=== PATIENT | male | born 1995 | race African-American/Black ===

== ENCOUNTER 2020-03-08 18:25 | Emergency (ER) | payer OTHER, SELFPAY ==
[2020-03-08 18:28] VITALS: BP 162/118; PULSE 97; RESP 18; TEMP 36.8; O2SAT 99
--- NOTE | 2020-03-08 19:28 | ED.GENADULT ---
HPI - General Adult General Chief complaint: Unspecified Stated complaint: swelling to tonsils Time Seen by Provider: 03/08/20 19:27 Source: patient Mode of arrival: ambulatory Limitations: no limitations History of Present Illness HPI narrative: 24-year-old male patient presents to the [facility] with complaints of sore throat and swollen tonsils for the past week that is gotten increasingly worse over the past 2 to 3 days. Patient denies any fevers that he is aware of. Denies any ear pain. Denies any chest pain or shortness of breath. Patient states he knows that he is snoring but does not have any trouble breathing through the day. Patient states that he does have trouble swallowing at times. Related Data Allergies Allergy/AdvReac Type Severity Reaction Status Date / Time No Known Allergies Allergy Verified 03/08/20 18:30 Review of Systems Review of Systems: Narrative: CONSTITUTIONAL: Denies fever, chills, or sweats. EYES: Denies visual changes, redness, or discharge. ENT: Denies rhinorrhea, congestion, positive sore throat, denies otalgia. CARDIOVASCULAR: Denies chest pain, palpitations, or edema. RESPIRATORY: Denies cough or dyspnea. GASTROINTESTINAL: Denies abdominal pain, nausea, vomiting, or diarrhea. GENITOURINARY: Denies dysuria or hematuria. SKIN: Denies rash or itching. MUSCULOSKELETAL: Denies back pain, joint pain, or myalgia. NEUROLOGIC: Denies headache, numbness, or weakness. PSYCHIATRIC: Denies anxiety or depression. PMFSH Social History Social History Gender identity (if verbalized by the patient): Male Comments At the time of my signature I agree with nursing past medical history, surgical, social, and family history. There is no relevant family history pertinent to the presenting complaint. Exam Narrative: Exam Narrative: GENERAL: Well-appearing, well-nourished, and in no acute distress. HEAD: Normocephalic, atraumatic. EYES: PERRLA and EOMI. ENT: Nares clear, no rhinorrhea or epistaxis. Mucous membranes moist. Posterior pharynx with 3+ kissing tonsils and bilateral white exudates. Bilateral TMs are clear with no erythema or foreign bodies in the canal. Patient tolerated secretions well. NECK: Supple. No lymphadenopathy CHEST: Clear to auscultation. No respiratory distress. HEART: Regular rate and rhythm. No murmur heard. Normal peripheral pulses. ABDOMEN: Soft, nontender, nondistended, normal active bowel sounds. EXTREMITIES: Normal range of motion. No edema. SKIN: Warm, dry, no rash. NEURO: No focal deficits. Alert and oriented x3. Course Vital Signs Vital signs: Vital Signs Temperature 36.8 C 03/08/20 18:28 Pulse Rate 97 03/08/20 18:28 Respiratory Rate 18 03/08/20 18:28 Blood Pressure 162/118 H 03/08/20 18:28 Pulse Oximetry 99 03/08/20 18:28 Temperature 36.8 C 03/08/20 18:28 Pulse Rate 97 03/08/20 18:28 Respiratory Rate 18 03/08/20 18:28 Blood Pressure 162/118 H 03/08/20 18:28 Pulse Oximetry 99 03/08/20 18:28 Vital signs reviewed. The patient has been informed that they may have pre-hypertension or Hypertension based on a BP reading in the department. I recommend that the patient call the primary care provider listed on their discharge instructions or a physician of their choice this week to arrange follow up for further evaluation of possible pre-hypertension or Hypertension Medical Decision Making Differential Diagnosis Differential Diagnosis: Differential diagnosis: Viral pharyngitis, pharyngitis, group A strep, infectious mononucleosis, gonococcal pharyngitis, exudative pharyngitis, oral candidiasis. Chronic allergies, postnasal drip, GERD, abscess formation, but glottitis, retropharyngeal abscess formation, or airway obstruction. Cussed with patient that her strep test today is negative however I am concerned that his tonsils are awfully large and the fact that he has some white exudates on
[2020-03-08] MEDS: AMOXICILLIN/CLAVULANATE K 875-125 MG TAB 1 TABLET PO (20:07)
[2020-03-08 20:08] VITALS: BP 141/100; PULSE 90; RESP 16; TEMP 36.4; O2SAT 100
== END 2020-03-08 20:24 | disposition home or self-care (01) ==
PROVIDERS: Emergency Provider Nurse Practitioner Family
DX: J03.90 Acute tonsillitis, unspecified (principal); R03.0 Elevated blood-pressure reading, without diagnosis of hypertension
CPT/HCPCS: 87081; 87880; 96372; 99283; A9270; J1100

== ENCOUNTER 2020-03-20 16:08 | Emergency (ER) | payer OTHER, SELFPAY ==
[2020-03-20 16:13] VITALS: BP 152/90; PULSE 91; RESP 18; TEMP 36.6; O2SAT 100
[2020-03-20] MEDS: KETOROLAC (*BKC) 60 MG/2 ML VIAL IM (17:17)
--- NOTE | 2020-03-20 17:35 | ED.GENADULT ---
HPI - General Adult General Chief complaint: Headache <Erich Marte PA-C - Last Filed: 03/20/20 17:38> Stated complaint: sinus pressure <Erich Marte PA-C - Last Filed: 03/20/20 17:38> Time Seen by Provider: 03/20/20 16:19 <Erich Marte PA-C - Last Filed: 03/20/20 17:38> Source: patient and family <Erich Marte PA-C - Last Filed: 03/20/20 17:38> Mode of arrival: ambulatory <Erich Marte PA-C - Last Filed: 03/20/20 17:38> Limitations: no limitations <Erich Marte PA-C - Last Filed: 03/20/20 17:38> History of Present Illness HPI narrative: Patient is a 24-year-old male who presents to emergency department for evaluation of frontal headache that has been present now for the last 3 days off-and-on is mild to moderate in nature improved with ibuprofen. Patient was treated for recent upper respiratory infection which she notes has improved patient on arrival is in the room in no distress denies injury or trauma patient denies any radiation of the pain at this time. <Erich Marte PA-C - Last Filed: 03/20/20 17:38> Related Data Allergies/adverse reactions: Allergies Allergy/AdvReac Type Severity Reaction Status Date / Time No Known Allergies Allergy Verified 03/20/20 16:16 <Erich Marte PA-C - Last Filed: 03/20/20 17:38> Review of Systems Review of Systems: All systems reviewed & are unremarkable except as noted in HPI and below <Erich Marte PA-C - Last Filed: 03/20/20 17:38> [facility] Social History Social History: Social History Gender identity (if verbalized by the patient): Male <FLORINDA Emmanuel Last Filed: 03/20/20 17:38> Exam Narrative: Exam Narrative: GENERAL: Well-appearing, obese, and in no acute distress. HEAD: Normocephalic, atraumatic. EYES: PERRLA and EOMI. ENT: Nares clear, no rhinorrhea or epistaxis. Mucous membranes moist. Oropharynx without tonsillar hypertrophy exudate or other lesions. Bilateral TMs pearly mcintosh nonbulging NECK: Supple. No adenopathy or masses. CHEST: Clear to auscultation. No respiratory distress. No wheezes rales or rhonchi HEART: Regular rate and rhythm. No murmur heard. EXTREMITIES: Normal range of motion. No edema. SKIN: Warm, dry, no rash. NEURO: No focal deficits. Alert and oriented x3. Cranial nerves II through XII grossly intact. Normal speech and gait PSYCH: Normal mood and affect. <Erich Marte PA-C - Last Filed: 03/20/20 17:38> Course Course Emergency Course: Patient in the room in no distress aware of case findings treatment plan and diagnosis <Erich Marte PA-C - Last Filed: 03/20/20 17:38> Vital Signs Vital signs: Vital Signs Temperature 97.9 F 03/20/20 16:13 Pulse Rate 91 03/20/20 16:13 Respiratory Rate 18 03/20/20 16:13 Blood Pressure 152/90 H 03/20/20 16:13 Pulse Oximetry 100 03/20/20 16:13 Temperature 97.9 F 03/20/20 16:13 Pulse Rate 91 03/20/20 16:13 Respiratory Rate 18 03/20/20 16:13 Blood Pressure 152/90 H 03/20/20 16:13 Pulse Oximetry 100 03/20/20 16:13 <Erich Marte PA-C - Last Filed: 03/20/20 17:38> Vital Signs Temperature 97.9 F 03/20/20 16:13 Pulse Rate 91 03/20/20 16:13 Respiratory Rate 18 03/20/20 16:13 Blood Pressure 152/90 H 03/20/20 16:13 Pulse Oximetry 100 03/20/20 16:13 Temperature 97.9 F 03/20/20 16:13 Pulse Rate 91 03/20/20 16:13 Respiratory Rate 18 03/20/20 16:13 Blood Pressure 152/90 H 03/20/20 16:13 Pulse Oximetry 100 03/20/20 16:13 <Catherine Birmingham MD - Last Filed: 03/20/20 18:26> Medical Decision Making MDM Narrative Medical decision making narrative: Patients headache was not sudden or maximal in onset. There are no focal neurological deficits on exam. Subarachnoid hemorrhage is felt to be unlikey at this time. There is no history of fever, and nec
== END 2020-03-20 17:51 | disposition home or self-care (01) ==
PROVIDERS: Emergency Provider General Practice; PCP Family Medicine
DX: R51 Headache (principal)
CPT/HCPCS: 96372; 99283; J1885

== ENCOUNTER 2020-04-13 17:08 | Emergency (ER) | payer OTHER, SELFPAY ==
[2020-04-13 17:25] VITALS: BP 150/103; PULSE 93; RESP 18; TEMP 37.1; O2SAT 100
--- NOTE | 2020-04-13 18:17 | ED.GENADULT ---
HPI - General Adult General Chief complaint: Unspecified Stated complaint: TONSIL STONES Time Seen by Provider: 04/13/20 18:09 History of Present Illness HPI narrative: Patient presents with his mother for swollen painful tonsils. He has had recurrent cases of tonsillitis. This is his second case this year. He has been told in the past that he has tonsil stones. He describes this as food and bacteria buildup. He rates his pain at 6 out of 10. He is interested in having his tonsils out to stop the cycle. He has not seen an ear nose and throat doctor in the past. His surgery includes circumcision. He vapes, but does not drink alcohol or smoke marijuana. He works for the [employer]. He is otherwise well. Related Data Allergies Allergy/AdvReac Type Severity Reaction Status Date / Time No Known Allergies Allergy Verified 04/13/20 17:29 Review of Systems Review of Systems: Narrative: CONSTITUTIONAL: Denies fever, chills, or sweats. EYES: Denies visual changes, redness, or discharge. ENT: Denies rhinorrhea, congestion, or otalgia. CARDIOVASCULAR: Denies chest pain, palpitations, or edema. RESPIRATORY: Denies cough or dyspnea. GASTROINTESTINAL: Denies abdominal pain, nausea, vomiting, or diarrhea. GENITOURINARY: Denies dysuria or hematuria. SKIN: Denies rash or itching. MUSCULOSKELETAL: Denies back pain, joint pain, or myalgia. NEUROLOGIC: Denies headache, numbness, or weakness. PMFSH Surgical History Surgical History (Updated 04/13/20 @ 18:18 by Dottie Heath MD) History of circumcision Social History Social History (Updated 04/13/20 @ 18:19 by Dottie Heath MD) Tobacco type: e-cigarettes/vaping Alcohol intake: never Substance use: never Gender identity (if verbalized by the patient): Male Exam Narrative: Exam Narrative: GENERAL: Well-appearing, well-nourished, and in no acute distress. Overweight. Many tattoos. HEAD: Normocephalic, atraumatic. EYES: PERRLA and EOMI. ENT: Nares clear, no rhinorrhea or epistaxis. Mucous membranes moist. Large cryptic tonsils. NECK: Supple. CHEST: Clear to auscultation. No respiratory distress. HEART: Regular rate and rhythm. No murmur heard. Normal peripheral pulses. ABDOMEN: Soft, nontender, nondistended, normal active bowel sounds. EXTREMITIES: Normal range of motion. No edema. SKIN: Warm, dry, no rash. NEURO: No focal deficits. Alert and oriented x3. PSYCH: Normal mood and affect. Course Vital Signs Vital signs: Vital Signs Temperature 98.7 F 04/13/20 17:25 Pulse Rate 93 04/13/20 17:25 Respiratory Rate 18 04/13/20 17:25 Blood Pressure 150/103 H 04/13/20 17:25 Pulse Oximetry 100 04/13/20 17:25 Temperature 98.7 F 04/13/20 17:25 Pulse Rate 93 04/13/20 17:25 Respiratory Rate 18 04/13/20 17:25 Blood Pressure 150/103 H 04/13/20 17:25 Pulse Oximetry 100 04/13/20 17:25 Medical Decision Making Medical Records Medical records reviewed: Yes I reviewed the patient's medical records. Vital Signs Vital Signs: Vital Signs Temperature 98.7 F 04/13/20 17:25 Pulse Rate 93 04/13/20 17:25 Respiratory Rate 18 04/13/20 17:25 Blood Pressure 150/103 H 04/13/20 17:25 Pulse Oximetry 100 04/13/20 17:25 Temperature 98.7 F 04/13/20 17:25 Pulse Rate 93 04/13/20 17:25 Respiratory Rate 18 04/13/20 17:25 Blood Pressure 150/103 H 04/13/20 17:25 Pulse Oximetry 100 04/13/20 17:25 Discharge Plan Discharge Clinical Impression: Acute tonsillitis Qualifiers: Pharyngitis/tonsillitis etiology: unspecified etiology Qualified Code(s): J03.90 - Acute tonsillitis, unspecified Patient Disposition: Home, Self-Care Condition: Stable Instructions: Antibiotic Form, Tonsillitis (ED) Prescriptions: New amoxicillin-pot clavulanate [Augmentin] 875-125 mg tablet 1 tablet PO Q12H Qty: 20 RF: 0 naproxen sodium [Anaprox DS] 550 mg tablet 550 mg PO Q12H Qty: 20 RF: 0 Foll
[2020-04-13] MEDS: KETOROLAC (*BKC) 60 MG/2 ML VIAL IM (18:21)
== END 2020-04-13 18:29 | disposition home or self-care (01) ==
PROVIDERS: Emergency Provider Emergency Medicine; PCP Family Medicine
DX: J03.90 Acute tonsillitis, unspecified (principal); F17.290 Nicotine dependence, other tobacco product, uncomplicated
CPT/HCPCS: 96372; 99283; J1885

== ENCOUNTER 2020-05-15 01:06 | Outpatient (CLI) | payer OTHER, SELFPAY ==
[2020-05-15 18:53] LABS: SARS-CoV-2 RNA PCR Negative
== END 2020-05-15 01:07 | disposition home or self-care (01) ==
LOC: ANHCOVIDDT 01:07
PROVIDERS: PCP Family Medicine; Visit Provider Otolaryngology
DX: Z01.812 Encounter for preprocedural laboratory examination (principal); Z20.828 Contact with and (suspected) exposure to other viral communicable diseases
CPT/HCPCS: 87635; C9803; U0003

== ENCOUNTER 2020-05-17 00:42 | Day surgery (SDC) | payer OTHER, SELFPAY ==
[2020-05-09 08:40] VITALS: BMI 47.9
--- NOTE | 2020-05-15 10:53 | PM.HPGS ---
History of Present Illness History of Present Illness Consent: Risks, benefits, and alternatives have been discussed and questions answered. Patient agrees to proceed with procedure. Chief complaint: Hypertrophic tonsils Narrative: Dallas Reynolds is a 24 year old male (episodes of tonsillitis multiple episodes multiple antibiotics Review of Systems Review of Systems: All systems reviewed & are unremarkable except as noted in HPI and below PMFSH Past Medical History Medical History (Updated 05/08/20 @ 13:39 by Griselda Vargas [facility]) Enlarged tonsils Sleep apnea Surgical History Surgical History (Updated 04/13/20 @ 18:18 by Dottie Heath MD) History of circumcision Social History Social History (Updated 04/13/20 @ 18:19 by Dottie Heath MD) Years smoked: 3 Tobacco type: e-cigarettes/vaping Alcohol intake: never Substance use: never Gender identity (if verbalized by the patient): Male Spiritual care concerns: No Meds Home Medications and Allergies Home Medications Medication Instructions Recorded Confirmed Type No Home Medications 05/09/20 05/09/20 History Allergies Allergy/AdvReac Type Severity Reaction Status Date / Time No Known Allergies Allergy Verified 05/09/20 08:40
[2020-05-17] VITALS (10 sets, daily range): BP systolic 140–182; BP diastolic 73–108; PULSE 83–94; RESP 17–22; TEMP 36.1–36.5; O2SAT 96–100
--- NOTE | 2020-05-17 06:09 | WPDHPUPDATE1 ---
History and Physical Update Update Date/Time: 05/17/20 06:09 History and Physical has been reviewed, including an updated exam of the patient. There are NO changes in the patient's condition. Risks, benefits, and alternatives have been discussed and questions answered. Patient agrees to proceed with procedure.
[2020-05-17] MEDS: ACETAMINOPHEN 500 MG TABLET 1000 MG PO (07:35)
[2020-05-17] MEDS: LACTATED RINGERS 1,000 ML 30 ML IV CONT (08:05)
--- NOTE | 2020-05-17 08:06 | WPDANESEPPF ---
Anes - Initial Pre Proc Eval Procedure: Operation Date: 05/17/20 09:00 Proposed Procedures p Tonsillectomy - Josue Madera MD Date/Time: 05/17/20 08:06 Surgeon: Josue Madera MD Pre Op Diagnosis: Hypertrophic tonsils Patient Data Age: 24 Gender: M Height: 1.78 m Weight: 153.4 kg Allergies Allergy/AdvReac Type Severity Reaction Status Date / Time No Known Allergies Allergy Verified 05/17/20 07:25 Home Medications Medication Instructions Recorded Confirmed Type No Home Medications 05/09/20 05/17/20 History Patient hx anesthesia problems: none Family hx anesthesia problems: none PMFSH Past Medical History Medical History (Updated 05/17/20 @ 08:07 by Andrae Yip MD) Enlarged tonsils HTN (hypertension) Morbid obesity with BMI of 45.0-49.9, adult Sleep apnea Surgical History Surgical History (Updated 04/13/20 @ 18:18 by Dottie Heath MD) History of circumcision Social History Social History (Updated 04/13/20 @ 18:19 by Dottie Heath MD) Years smoked: 3 Tobacco type: e-cigarettes/vaping Alcohol intake: never Substance use: never Gender identity (if verbalized by the patient): Male Spiritual care concerns: No Anes - Eval Final PreProcedure Day of Procedure 05/17/20 08:06 Patient weight: morbidly obese Heart: regular rate and rhythm Lungs: clear to auscultation and normal air movement Airway: Mallampati scale class II Neurological: alert and oriented Last oral intake: >/= 8 hours ASA classification: III Emergent: no Anesthetic plan: proceed Anesthesia type and monitoring: general ETT Informed Consent: The patient's anesthetic plan and its attendant risks and benefits were discussed with the patient/family/POA. Questions were solicited and answers provided to the satisfaction of the patient/family/POA.
--- NOTE | 2020-05-17 09:22 | PM.PROC ---
Procedure Note - Detailed Date of procedure: 05/17/20 Pre-op diagnosis: Hypertrophic tonsils Hypertrophic tonsils Post-op diagnosis: same Procedure performed: tonsillectomy Description of procedure: Patient was prepped and draped in usual fashion after induction of anesthesia. The McIvor mouth gag was inserted. The tonsils were removed dissection technique hemostasis was obtained electrocautery. The mouth was inspected for bleeding. When stablized patient was awaken and brought to the recovery room in good condition. Anesthesia: GLMA Surgeon: Josue Madera MD Estimated blood loss (mL): 15 Drains: No Packing: No Pathology: none sent Complications: No immediate complications Condition: stable Disposition: PACU Findings: markedly hypertrophic tonsils
[2020-05-17] MEDS: METOPROLOL TARTRATE INJ 5 MG/5 ML VIAL IV PUSH (09:44)
--- NOTE | 2020-05-17 09:54 | SUR.PHASEI ---
0954- DR. NOLAND AT BEDSIDE, ORDERS GIVEN FOR B/P MEDS.
[2020-05-17] MEDS: hydrALAZINE HCL 20 MG/ML VIAL 10 MG IV PUSH (09:57)
--- NOTE | 2020-05-23 07:14 | WPDANESEPPF ---
Anes - Initial Pre Proc Eval Procedure: Operation Date: 05/17/20 09:00 Proposed Procedures p Tonsillectomy - Josue Madera MD Date/Time: 05/23/20 07:14 Surgeon: Josue Madera MD Pre Op Diagnosis: Hypertrophic tonsils Patient Data Age: 24 Gender: M Height: 5 ft 10 in Weight: 153.4 kg Last Vital Signs Temp 97.7 F 05/17/20 09:31 Pulse 86 05/17/20 11:00 Resp 17 05/17/20 10:22 BP 140/73 05/17/20 11:00 Pulse Ox 97 05/17/20 10:22 Allergies Allergy/AdvReac Type Severity Reaction Status Date / Time No Known Allergies Allergy Verified 05/17/20 07:25 Home Medications Medication Instructions Recorded Confirmed Type hydrocodone-acetaminophen 15 ml PO Q4H PRN #600 ml 05/17/20 Rx oxycodone 5 mg/5 mL oral solution 5 mg PO Q8H PRN #75 ml 05/21/20 Rx Patient hx anesthesia problems: none Family hx anesthesia problems: none PMFSH Past Medical History Medical History (Updated 05/23/20 @ 07:27 by Catherine Birmingham MD) Enlarged tonsils HTN (hypertension) Morbid obesity with BMI of 45.0-49.9, adult Sleep apnea Surgical History Surgical History (Updated 05/23/20 @ 07:26 by Catherine Birmingham MD) History of circumcision S/P tonsillectomy Social History Social History (Updated 04/13/20 @ 18:19 by Dottie Heath MD) Years smoked: 3 Tobacco type: e-cigarettes/vaping Alcohol intake: never Substance use: never Gender identity (if verbalized by the patient): Male Spiritual care concerns: No Anes - Eval Final PreProcedure Day of Procedure 05/23/20 07:14 Patient weight: morbidly obese Heart: regular rate and rhythm Lungs: clear to auscultation Airway: Mallampati scale class III Neurological: alert and oriented Last oral intake: >/= 8 hours ASA classification: III Emergent: yes Anesthetic plan: proceed Anesthesia type and monitoring: general ETT (use glidescope; was used for previous surgery) and standard monitoring Informed Consent: The patient's anesthetic plan and its attendant risks and benefits were discussed with the patient/family/POA. Questions were solicited and answers provided to the satisfaction of the patient/family/POA.
== END 2020-05-17 11:36 | disposition home or self-care (01) ==
PROVIDERS: PCP Family Medicine; Visit Provider Otolaryngology
PROC: (CPT 42826; principal; 2020-05-17 09:00)
DX: J35.01 Chronic tonsillitis (principal); I10 Essential (primary) hypertension; G47.30 Sleep apnea, unspecified; E66.01 Morbid (severe) obesity due to excess calories; Z68.42 Body mass index [BMI] 45.0-49.9, adult; F17.290 Nicotine dependence, other tobacco product, uncomplicated
CPT/HCPCS: 42826; 88302; 88304; A9270; J0330; J0360; J1100; J1170; J2250; J2405; J2704; J3010; J7120

== ENCOUNTER 2020-05-23 07:11 | Day surgery (SDC) | payer OTHER, SELFPAY ==
[2020-05-23] VITALS (8 sets, daily range): BP systolic 117–180; BP diastolic 70–103; PULSE 80–103; RESP 14–20; TEMP 36.1–36.9; O2SAT 94–99
--- NOTE | 2020-05-23 07:23 | ED.GENADULT ---
HPI - General Adult General Chief complaint: Dental/Oral Stated complaint: Surgery Consult Time Seen by Provider: 05/23/20 07:23 Source: patient Mode of arrival: ambulatory Limitations: no limitations History of Present Illness HPI narrative: This patient is a 24 year old male who presents POD 6 s/p tonsillectomy with bleeding. PAtient reports he woke up this morning at 450 am with mild sore throat. He went to the restroom and he noticed that he was having bleeding when he was spitting. He states it looked like a crime scene . He denies sob, nausea, vomiting or fever. His throat pain has improved. Dr. Madera his ENT doctor is waiting to take him to the OR this morning. Related Data Allergies Allergy/AdvReac Type Severity Reaction Status Date / Time No Known Allergies Allergy Verified 05/17/20 07:25 Review of Systems Review of Systems: All systems reviewed & are unremarkable except as noted in HPI and below Constitutional: Constitutional: Denies chills and Denies fever(s) ENT: Denies dizziness Cardiovascular: Cardiovascular: Denies chest pain PMFSH Past Medical History Medical History (Updated 05/23/20 @ 07:27 by Catherine Birmingham MD) Enlarged tonsils HTN (hypertension) Morbid obesity with BMI of 45.0-49.9, adult Sleep apnea Surgical History Surgical History (Updated 05/23/20 @ 07:26 by Catherine Birmingham MD) History of circumcision S/P tonsillectomy Social History Social History (Updated 04/13/20 @ 18:19 by Dottie Heath MD) Years smoked: 3 Tobacco type: e-cigarettes/vaping Alcohol intake: never Substance use: never Gender identity (if verbalized by the patient): Male Spiritual care concerns: No Exam Const: General: alert Orientation/consciousness: patient oriented x3 HENMT: Head: normocephalic and atraumatic Face and sinus: face symmetric Mouth: Yes lip normal and Yes tongue normal Throat: uvula midline and abnormal tonsil bilateral (blood in fossa) Eyes: EOM: EOMs intact bilaterally Resp: Effort & Inspection: normal respiratory effort and no retractions Auscultation: clear to auscultation bilaterally Cardio: Rate: regular rate Rhythm: regular rhythm Heart sounds: no murmurs Skin: General skin exam: normal color Neuro: General: patient oriented x3 and moves all extremities Extrem: General: no pedal edema Psych: Mental Status: mental status grossly normal Affect: normal affect Course Reevaluation(s) Reevaluation #1: Nursing staff just took patient to the OR Date: 05/23/20 Time: 07:27 Vital Signs Vital signs: Vital Signs Temperature 98.4 F 05/23/20 07:37 Pulse Rate 103 H 05/23/20 07:37 Respiratory Rate 18 05/23/20 07:37 Blood Pressure 180/103 H 05/23/20 07:37 Pulse Oximetry 98 05/23/20 07:37 Temperature 97.0 F L 05/23/20 08:12 Pulse Rate 82 05/23/20 09:59 Respiratory Rate 14 05/23/20 09:59 Blood Pressure 138/80 05/23/20 09:59 Pulse Oximetry 94 05/23/20 08:55 Medical Decision Making Vital Signs Vital Signs: Vital Signs Temperature 98.4 F 05/23/20 07:37 Pulse Rate 103 H 05/23/20 07:37 Respiratory Rate 18 05/23/20 07:37 Blood Pressure 180/103 H 05/23/20 07:37 Pulse Oximetry 98 05/23/20 07:37 Temperature 97.0 F L 05/23/20 08:12 Pulse Rate 82 05/23/20 09:59 Respiratory Rate 14 05/23/20 09:59 Blood Pressure 138/80 05/23/20 09:59 Pulse Oximetry 94 05/23/20 08:55 Discharge Plan Discharge Clinical Impression: Post-tonsillectomy hemorrhage Patient Disposition: Still a Patient Condition: Stable Discharge Date/Time: 05/23/20 07:52
[2020-05-23] MEDS: LACTATED RINGERS 1,000 ML 30 ML IV CONT (07:45)
--- NOTE | 2020-05-23 07:51 | PC.NURSE ---
Per Dr. Hussain arciniega put IV in pt, they had a hard time doing it last time. OR can place IV .
--- NOTE | 2020-05-23 07:52 | PC.NURSE ---
Per triage nurse pts parents were sent to car, but was notified that pt was going to OR.
--- NOTE | 2020-05-23 09:24 | PM.PROC ---
Procedure Note - Detailed Date of procedure: 05/23/20 Pre-op diagnosis: Surgery Consult Surgeon: Josue Madera MD
--- NOTE | 2020-05-23 09:24 | PM.PROC ---
Procedure Note - Detailed Date of procedure: 05/23/20 Pre-op diagnosis: Surgery Consult post tonsillectomy hemorrhage Post-op diagnosis: same Procedure performed: control tonsillectomy bleeding Description of procedure: patient prepped under general anesthesia the patient was intubated bleeding points tunnel right tonsillar fossa were coagulated stomach emptied patient awakened returned to recovery in good condition Anesthesia: GLMA Surgeon: Josue Madera MD Estimated blood loss (mL): 50 Drains: No Packing: No Pathology: none sent Complications: No immediate complications Condition: stable Disposition: PACU Findings: post tonsillectomy bleeding
[2020-05-23] MEDS: ONDANSETRON INJ 4 MG/2 ML VIAL IV PUSH (09:47)
== END 2020-05-23 10:10 | disposition home or self-care (01) ==
LOC: ANHED 07:28 → ANHSURGERY 07:29
PROVIDERS: Emergency Provider General Practice; PCP Family Medicine; Visit Provider Otolaryngology
PROC: (CPT 42962; principal; 2020-05-23 07:30)
DX: J95.830 Postprocedural hemorrhage of a respiratory system organ or structure following a respiratory system procedure (principal); G47.30 Sleep apnea, unspecified; Y83.6 Removal of other organ (partial) (total) as the cause of abnormal reaction of the patient, or of later complication, without mention of misadventure at the time of the procedure
CPT/HCPCS: 42962; 99285; A9270; J0330; J1100; J2405; J2704; J3010; J7120

== ENCOUNTER 2021-08-05 17:46 | Emergency (ER) | payer OTHER, SELFPAY ==
[2021-08-05 17:56] VITALS: PULSE 97; RESP 22; TEMP 36.6; O2SAT 99
--- NOTE | 2021-08-05 17:56 | ED.URI ---
HPI - URI/Sore Throat General Chief Complaint: Upper Respiratory Infection Stated Complaint: sore throat/fatigue/mucus/cough Time Seen by Provider: 08/05/21 17:50 Source: patient, RN notes reviewed and old records reviewed Mode of arrival: ambulatory Limitations: no limitations History of Present Illness HPI Narrative: 26-year-old male presents to the [facility] with complaints of a cough for 2 days. Also reports a sore throat. No treatment prior to arrival had a tonsillectomy a year ago. Denies any fevers. No chest pain. No shortness of breath. No abdominal pain No treatment prior to arrival Related Data Home Medications Medication Instructions Recorded Confirmed No Home Medications 08/05/21 08/05/21 Allergies Allergy/AdvReac Type Severity Reaction Status Date / Time No Known Allergies Allergy Verified 05/17/20 07:25 Review of Systems Review of Systems: All systems reviewed & are unremarkable except as noted in HPI and below Constitutional: Constitutional: Reports no additional constitutional complaints, Denies chills and Denies fever(s) Eyes: Eyes: Reports no additional eye complaints ENT: Reports as per HPI and Reports sore throat Cardiovascular: Cardiovascular: Reports no additional cardiovascular complaints and Denies chest pain Respiratory: Respiratory: Reports no additional respiratory complaints, Denies cough, Denies dyspnea and Denies wheezing Gastrointestinal: Gastrointestinal: Reports no additional gastrointestinal complaints Musculoskeletal: Musculoskeletal: Reports no additional musculoskeletal complaints Integumentary/Breasts: Skin/Breast: Reports system reviewed and no additional complaints, except as docu Neurologic: Reports system reviewed and no additional complaints, except as documented Psychiatric: Psychiatric: Reports no additional psychiatric complaints Allergic/Immunologic: Allergic/Immunologic: Reports no additional allergic/immunologic complaints [facility] Past Medical History Medical History (Updated 08/05/21 @ 18:21 by Dia Dyson) Enlarged tonsils HTN (hypertension) Morbid obesity with BMI of 45.0-49.9, adult Sleep apnea Surgical History Surgical History History of circumcision S/P tonsillectomy Social History Social History Years smoked: 3 Tobacco type: e-cigarettes/vaping Alcohol intake: never Substance use: never Gender identity (if verbalized by the patient): Male Spiritual care concerns: No Comments At the time of my signature, I reviewed and agree with the nursing past medical, surgical, social, and family history. There is no relevant family history pertinent to the patient complaint. Exam Const: General: healthy appearing, no acute distress and alert Nutritional Appearance: well nourished and obese Orientation/consciousness: patient oriented x3 Limitations: no limitations HENMT: Head: normal to inspection Ears: external ears normal, TM's normal bilaterally and EAC's normal General nose exam: Normal external nose present and Normal nasal mucous membranes and turbinates present Face and sinus: normal facial exam Mouth: Yes Normal oral and palatal mucosa present, Yes lip normal and Yes tongue normal Throat: posterior oropharynx normal, uvula midline and tonsils absent Eyes: Conjunctivae: conjunctivae normal Pupils: Equal, round and reactive pupils present Neck: Neck: normal visual inspection, no lymphadenopathy and no meningeal signs Chest: Chest palpation & inspection: normal inspection of the chest Resp: Effort & Inspection: normal respiratory effort Auscultation: clear to auscultation bilaterally Cardio: Rate: regular rate Rhythm: regular rhythm Back/Spine/Pelvis: Back: no CVA tenderness Skin: General skin exam: normal color Rashes: no rashes Wounds: no wounds Neuro: General: patient oriented x3, moves all extremities,
[2021-08-05 17:59] VITALS: BP 153/84; PULSE 105; RESP 18; TEMP 36.6; O2SAT 100
== END 2021-08-05 18:22 | disposition home or self-care (01) ==
PROVIDERS: Emergency Provider Nurse Practitioner; PCP Family Medicine
DX: J02.8 Acute pharyngitis due to other specified organisms (principal); F17.290 Nicotine dependence, other tobacco product, uncomplicated; I10 Essential (primary) hypertension; G47.30 Sleep apnea, unspecified; E66.01 Morbid (severe) obesity due to excess calories
CPT/HCPCS: 87081; 87880; 99213; G0463